=== PATIENT | female | born 1985 | race Caucasian/White ===

== ENCOUNTER 2019-08-13 15:36 | Emergency (ER) | payer MEDICAID | END 2019-08-13 17:45 | disposition left against medical advice (07) | LOC: ER 15:37 | DX: M54.9 Dorsalgia, unspecified (principal); Z53.21 Procedure and treatment not carried out due to patient leaving prior to being seen by health care provider ==

== ENCOUNTER 2019-08-14 09:01 | Emergency (ER) | payer MEDICAID ==
[~2019-08-14] VITALS: Ht 154.9 cm; Wt 62.3 kg
--- NOTE | 2019-08-14 09:54 | NUR ---
DELBERT BUNDY AT BEDSIDE.
[2019-08-14] MEDS ORDERED: cyclobenzaprine 10mg tablet PO ONE (10:15)
[2019-08-14] MEDS ORDERED: ketorolac tromethamine 15mg/ml inj. IM ONE (10:15)
[2019-08-14 10:31] VITALS: BP 149/73
== END 2019-08-14 10:33 | disposition home or self-care (01) ==
LOC: ER 09:02
DX: S39.012A Strain of muscle, fascia and tendon of lower back, initial encounter (principal); Z88.0 Allergy status to penicillin; Z88.1 Allergy status to other antibiotic agents; X50.1XXA Overexertion from prolonged static or awkward postures, initial encounter; Y93.01 Activity, walking, marching and hiking; Y92.89 Other specified places as the place of occurrence of the external cause; Y99.9 Unspecified external cause status
CPT/HCPCS: 96372; 99284; J1885

== ENCOUNTER 2019-10-01 09:44 | Emergency (ER) | payer MEDICAID ==
[~2019-10-01] VITALS: Ht 154.9 cm; Wt 63.2 kg
[2019-10-01 10:30] LABS: CLARITY,URINE CLOUDY (Clear); GLUCOSE, URINE NEGATIVE (Neg); KETONES,URINE 15 mg/dl (Neg); LEUKOCYTE ESTERASE ,URINE NEGATIVE (Neg); NITRITES, URINE NEGATIVE (Neg); OCCULT BLOOD,URINE NEGATIVE (Neg); PH,URINE >=9.0 (4.8-8.0); PROTEIN,URINE 100 mg/dl (Neg)
[2019-10-01 10:35] LABS: UA COLLECTION TYPE CLN CATCH MIDSTREAM
[2019-10-01] MEDS ORDERED: proCHLORperazine 10 MG/2 ml inj IV ONE (10:35)
[2019-10-01 10:38] LABS: COLOR,URINE DARK YELLOW (Yellow)
[2019-10-01 10:40] LABS: MUCUS STRANDS MANY /LPF (Neg); SQUAMOUS EPITHELIAL CELL,UR MANY /LPF (FEW)
[2019-10-01] MEDS ORDERED: ondansetron/PF 4mg/2ml inj IV ONE (10:45)
[2019-10-01] MEDS ORDERED: normal saline 1000ml 1,000 ML IV ONE (10:45)
[2019-10-01 10:46] LABS: BASOPHILS % (AUTO) 0.2 % (0-1); EOSINOPHILS % (AUTO) 0.4 % (0-6); HEMATOCRIT 46.1 % (35.0-45.0); HEMOGLOBIN 16.4 g/dl (12.0-16.0); LYMPHOCYTES # (AUTO) 1.9 X10'3 (1.1-4.8); LYMPHOCYTES % (AUTO) 19.3 % (21-51); MEAN CORPUSCULAR HEMOGLOBIN 30.8 PG (27.0-31.0); MEAN CORPUSCULAR HGB CONC 35.6 g/dL (33.0-36.5); MEAN CORPUSCULAR VOLUME 86.5 FL (78-98); MEAN PLATELET VOLUME 7.5 FL (7.4-10.4); MONOCYTES # (AUTO) 0.4 X10'3 (0-0.9); MONOCYTES % (AUTO) 3.9 % (2-12); NEUTROPHILS # (AUTO) 7.4 X10'3 (1.8-7.7); NEUTROPHILS % (AUTO) 76.2 % (42-75); PLATELET COUNT 277 X10'3 (140-440); RED BLOOD COUNT 5.33 X10'6 (4.20-5.60); RED CELL DISTRIBUTION WIDTH 13.3 % (11.5-14.5); WHITE BLOOD COUNT 9.7 X10'3 (4.5-11.0)
[2019-10-01 10:47] LABS: TRANSITIONAL EPI CELLS,URINE FEW /HPF; WBC,URINE 0-4 /HPF (0-4)
[2019-10-01 10:48] LABS: BACTERIA,URINE 2+ /HPF (Neg); RBC,URINE 0-2 /HPF (0-2)
[2019-10-01 11:08] LABS: ALANINE AMINOTRANSFERASE 23 U/L (12-78); ALBUMIN 4.4 G/DL (3.4-5.0); ALBUMIN/GLOBULIN RATIO 1.3 (1.1-1.5); ALKALINE PHOSPHATASE 84 IU/L (46-116); AMYLASE 59 U/L (25-115); ANION GAP 16 (8-16); ASPARTATE AMINO TRANSFERASE 14 U/L (10-37); BILIRUBIN,TOTAL 0.4 MG/DL (0.1-1.0); BLOOD UREA NITROGEN 13 MG/DL (7-18); CALCIUM 9.4 MG/DL (8.5-10.1); CHLORIDE 103 MMOL/L (99-107); CREATININE 0.81 MG/DL (0.40-0.90); GLUCOSE 121 MG/DL (70-104); LIPASE 67 U/L (73-393); POTASSIUM 3.4 MMOL/L (3.5-5.1); SODIUM 139 MMOL/L (135-145); TOTAL CARBON DIOXIDE 20.5 MMOL/L (24-32); TOTAL PROTEIN 7.9 G/DL (6.4-8.2); eGFR 82 ML/MIN
[2019-10-01 11:33] LABS: URINE HCG NEGATIVE (NEG)
[2019-10-01 11:46] LABS: URINE AMPHETAMINE SCREEN NEGATIVE (Neg); URINE BARBITUATE SCREEN NEGATIVE (Neg); URINE BENZODIAZEPINES SCREEN NEGATIVE (Neg); URINE CANNABINOID SCREEN POSITIVE (Neg); URINE COCAINE SCREEN NEGATIVE (Neg); URINE METHADONE SCREEN NEGATIVE (Neg); URINE OPIATE SCREEN NEGATIVE (Neg); URINE PHENCYCLIDINE SCREEN NEGATIVE (Neg)
[2019-10-01] MEDS ORDERED: ONDA8TAB6 PO (11:49)
[2019-10-01 12:00] VITALS: BP 120/68
== END 2019-10-01 12:01 | disposition home or self-care (01) ==
LOC: ER 09:44
DX: K29.70 Gastritis, unspecified, without bleeding (principal)
CPT/HCPCS: 36415; 80053; 80305; 81001; 81025; 82150; 83690; 85025; 96374; 96375; 99283; J0780; J2405; J7030

== ENCOUNTER 2019-10-27 13:59 | Emergency (ER) | payer MEDICAID ==
[~2019-10-27] VITALS: Ht 154.9 cm; Wt 61.8 kg
[~2019-10-27 13:59] MED LIST: ONDA8TAB6 PO
[2019-10-27 14:03] VITALS: BP 107/65
[2019-10-27 14:22] LABS: URINE HCG NEGATIVE (NEG)
[2019-10-27 14:29] LABS: CLARITY,URINE SLIGHTLY CLOUDY (Clear); COLOR,URINE STRAW (Yellow); GLUCOSE, URINE NEGATIVE (Neg); KETONES,URINE NEGATIVE (Neg); LEUKOCYTE ESTERASE ,URINE NEGATIVE (Neg); NITRITES, URINE NEGATIVE (Neg); OCCULT BLOOD,URINE NEGATIVE (Neg); PROTEIN,URINE NEGATIVE (Neg); UROBILINOGEN,URINE 0.2 E.U/dL (0.2-1.0)
[2019-10-27 14:30] LABS: BASOPHILS # (AUTO) 0.1 X10'3 (0-0.2); BASOPHILS % (AUTO) 0.8 % (0-1); EOSINOPHILS # (AUTO) 0.2 X10'3 (0-0.9); EOSINOPHILS % (AUTO) 2.1 % (0-6); HEMATOCRIT 43.9 % (35.0-45.0); HEMOGLOBIN 15.3 g/dl (12.0-16.0); LYMPHOCYTES # (AUTO) 2.3 X10'3 (1.1-4.8); LYMPHOCYTES % (AUTO) 28.6 % (21-51); MEAN CORPUSCULAR HEMOGLOBIN 30.5 PG (27.0-31.0); MEAN CORPUSCULAR HGB CONC 34.7 g/dL (33.0-36.5); MEAN CORPUSCULAR VOLUME 87.7 FL (78-98); MEAN PLATELET VOLUME 7.6 FL (7.4-10.4); MONOCYTES # (AUTO) 0.4 X10'3 (0-0.9); MONOCYTES % (AUTO) 5.1 % (2-12); NEUTROPHILS # (AUTO) 5.1 X10'3 (1.8-7.7); NEUTROPHILS % (AUTO) 63.4 % (42-75); PLATELET COUNT 228 X10'3 (140-440); RED BLOOD COUNT 5.01 X10'6 (4.20-5.60); RED CELL DISTRIBUTION WIDTH 13.4 % (11.5-14.5)
[2019-10-27 14:30] LABS: UA COLLECTION TYPE CLN CATCH MIDSTREAM
[2019-10-27 14:36] LABS: MUCUS STRANDS FEW /LPF (Neg); SQUAMOUS EPITHELIAL CELL,UR MODERATE /LPF (FEW)
[2019-10-27 14:37] LABS: BACTERIA,URINE 1+ /HPF (Neg); RBC,URINE 0-2 /HPF (0-2); TRANSITIONAL EPI CELLS,URINE FEW /HPF; WBC,URINE 0-4 /HPF (0-4)
[2019-10-27 14:45] LABS: ALANINE AMINOTRANSFERASE 30 U/L (12-78); ALBUMIN 3.7 G/DL (3.4-5.0); ALBUMIN/GLOBULIN RATIO 1.1 (1.1-1.5); ALKALINE PHOSPHATASE 93 IU/L (46-116); AMYLASE 44 U/L (25-115); ANION GAP 7 (8-16); ASPARTATE AMINO TRANSFERASE 17 U/L (10-37); BILIRUBIN,TOTAL 0.2 MG/DL (0.1-1.0); BLOOD UREA NITROGEN 7 MG/DL (7-18); BUN/CREATININE RATIO 12.5 (6.6-38.0); CALCIUM 8.5 MG/DL (8.5-10.1); CHLORIDE 104 MMOL/L (99-107); CREATININE 0.56 MG/DL (0.40-0.90); GLUCOSE 94 MG/DL (70-104); LIPASE 55 U/L (73-393); POTASSIUM 4.5 MMOL/L (3.5-5.1); SODIUM 138 MMOL/L (135-145); TOTAL CARBON DIOXIDE 27.1 MMOL/L (24-32); TOTAL PROTEIN 7.1 G/DL (6.4-8.2); eGFR > 90 ML/MIN
[2019-10-27] MEDS ORDERED: pantoprazole 40mg Tablet.DR PO STA (16:41)
[2019-10-27] MEDS ORDERED: acetaminophen 325mg tablet PO ONE (16:45)
[2019-10-27] MEDS ORDERED: famotidine 20mg tablet PO ONE (16:45)
[2019-10-27] MEDS ORDERED: famotidine 10mg tablet PO ONE (17:15)
== END 2019-10-27 17:02 | disposition home or self-care (01) ==
LOC: ER 13:59
DX: R10.32 Left lower quadrant pain (principal); R10.31 Right lower quadrant pain; R11.2 Nausea with vomiting, unspecified; Z88.0 Allergy status to penicillin; Z88.1 Allergy status to other antibiotic agents; Z88.8 Allergy status to other drugs, medicaments and biological substances; Z79.899 Other long term (current) drug therapy
CPT/HCPCS: 36415; 80053; 81001; 81025; 82150; 83690; 85025; 99283

== ENCOUNTER 2019-11-25 09:37 | Emergency (ER) | payer MEDICAID ==
[~2019-11-25] VITALS: Ht 160 cm; Wt 59.5 kg
[2019-11-25] MEDS ORDERED: normal saline 1000ML IV soln IVB ONE (10:00)
[2019-11-25 10:23] LABS: BASOPHILS % (AUTO) 0.3 % (0-1); EOSINOPHILS # (AUTO) 0.1 X10'3 (0-0.9); EOSINOPHILS % (AUTO) 1.9 % (0-6); HEMATOCRIT 47.5 % (35.0-45.0); HEMOGLOBIN 16.4 g/dl (12.0-16.0); LYMPHOCYTES # (AUTO) 1.9 X10'3 (1.1-4.8); LYMPHOCYTES % (AUTO) 24.8 % (21-51); MEAN CORPUSCULAR HEMOGLOBIN 29.9 PG (27.0-31.0); MEAN CORPUSCULAR HGB CONC 34.4 g/dL (33.0-36.5); MEAN CORPUSCULAR VOLUME 86.7 FL (78-98); MEAN PLATELET VOLUME 7.5 FL (7.4-10.4); MONOCYTES # (AUTO) 0.5 X10'3 (0-0.9); MONOCYTES % (AUTO) 6.1 % (2-12); NEUTROPHILS # (AUTO) 5.1 X10'3 (1.8-7.7); NEUTROPHILS % (AUTO) 66.9 % (42-75); PLATELET COUNT 251 X10'3 (140-440); RED BLOOD COUNT 5.48 X10'6 (4.20-5.60); RED CELL DISTRIBUTION WIDTH 13.8 % (11.5-14.5); WHITE BLOOD COUNT 7.6 X10'3 (4.5-11.0)
[2019-11-25 10:37] LABS: PARTIAL THROMBOPLASTIN TIME 27 SECONDS (22-32)
[2019-11-25 10:38] LABS: ALANINE AMINOTRANSFERASE 28 U/L (12-78); ALBUMIN/GLOBULIN RATIO 1.1 (1.1-1.5); ALKALINE PHOSPHATASE 89 IU/L (46-116); ANION GAP 8 (8-16); ASPARTATE AMINO TRANSFERASE 19 U/L (10-37); BILIRUBIN,TOTAL 0.2 MG/DL (0.1-1.0); BLOOD UREA NITROGEN 11 MG/DL (7-18); BUN/CREATININE RATIO 19.3 (6.6-38.0); CHLORIDE 104 MMOL/L (99-107); CREATININE 0.57 MG/DL (0.40-0.90); GLUCOSE 101 MG/DL (70-104); POTASSIUM 4.2 MMOL/L (3.5-5.1); SODIUM 137 MMOL/L (135-145); TOTAL CARBON DIOXIDE 25.1 MMOL/L (24-32); TOTAL PROTEIN 7.5 G/DL (6.4-8.2); eGFR > 90 ML/MIN
[2019-11-25] MEDS ORDERED: iohexol 300mg/ml 100ml inj. ONE (11:10)
--- NOTE | 2019-11-25 12:10 | NUR ---
OJANA RN ATTEMPTED IV X2 AND VERONIQUE SOSA ATTEMPTED IV X 2, PAPA SOSA TO ATTEMPT TO OBTAIN IV ACCESS.
[2019-11-25 12:34] LABS: CLARITY,URINE SLIGHTLY CLOUDY (Clear); COLOR,URINE YELLOW (Yellow); GLUCOSE, URINE NEGATIVE (Neg); KETONES,URINE NEGATIVE (Neg); LEUKOCYTE ESTERASE ,URINE NEGATIVE (Neg); NITRITES, URINE NEGATIVE (Neg); OCCULT BLOOD,URINE NEGATIVE (Neg); PROTEIN,URINE NEGATIVE (Neg); UROBILINOGEN,URINE 0.2 E.U/dL (0.2-1.0)
[2019-11-25 12:39] LABS: UA COLLECTION TYPE CLN CATCH MIDSTREAM
[2019-11-25 12:48] VITALS: BP 110/66
[2019-11-25 12:54] LABS: BACTERIA,URINE 1+ /HPF (Neg); MUCUS STRANDS MANY /LPF (Neg); SQUAMOUS EPITHELIAL CELL,UR MANY /LPF (FEW)
[2019-11-25 12:55] LABS: RBC,URINE 0-2 /HPF (0-2); WBC,URINE 0-4 /HPF (0-4)
[2019-11-25] MEDS ORDERED: POLY17PO10 PO (13:29)
== END 2019-11-25 13:41 | disposition home or self-care (01) ==
LOC: ER 09:38
DX: N83.201 Unspecified ovarian cyst, right side (principal); N83.202 Unspecified ovarian cyst, left side; K59.00 Constipation, unspecified; E86.0 Dehydration; Z88.0 Allergy status to penicillin; Z88.1 Allergy status to other antibiotic agents; Z79.899 Other long term (current) drug therapy
CPT/HCPCS: 36415; 74177; 80053; 81001; 85025; 85610; 85730; 96360; 99284; J7030; Q9967

== ENCOUNTER 2025-05-23 10:04 | Emergency (ER) | payer MEDICAID ==
[~2025-05-23] VITALS: Ht 154.9 cm; Wt 83.0 kg
[2025-05-23] MEDS ORDERED: HYDR-3965 PO (11:59)
[2025-05-23] MEDS ORDERED: DOXY-460 PO (11:59)
[2025-05-23] MEDS ORDERED: ANBESOL TP (11:59)
[2025-05-23] MEDS: DOXYCYCLINE 100MG CAPSULE PO STA (12:02)
--- NOTE | 2025-05-23 12:02 | Physician Documentation ---
HPI ~ General Chief Complaint: Tooth Problem Stated Complaint: MOUTH PAIN Time Seen by MD: 10:53 OK to notify your PCP?: Yes Primary Medical Doctor: NONE Source: patient Mode of Arrival: POV Exam Limitations: no limitations History of Present Illness HPI Comment 32-year-old female with dental pain from a broken tooth on the right upper molar. She states that she has an appointment in a few weeks to see a dentist to have all the upper teeth removed. She has not started any antibiotics. She has been using Orajel [id number] with little relief. She has been taking Tylenol and ibuprofen as well. Medication Reconciliation Allergies: Coded Allergies: Penicillins (Unverified Allergy, Unknown, 05/23/25) cephalothin (Unverified Allergy, Unknown, 05/23/25) vancomycin (Unverified Allergy, Unknown, 05/23/25) Scheduled Benzocaine* (Anbesol*), 1 APPLIC TP Q2H Doxycycline Monohydrate (Doxycycline Monohydrate), 1 CAP PO Q12H Ondansetron Hcl (Zofran), 1 TAB PO Q8H Scheduled PRN Hydrocodone Bit/Acetaminophen 5/325 MG ([place] 5/325 MG), 1 TAB PO TID PRN PRN for pain Past Medical History Past Medical History: No Pertinent History Past Surgical History: noncontributory Drug Use: none Lives with: Spouse Lives In: Home Review of Systems All Other Systems at this time: Reviewed and Negative Physical Exam Vital Signs: RN Vital Signs have been reviewed: Yes, Temperature: 97.0, Source: Oral, Heart Rate: 75, Respiratory Rate: 18, BP: 160/98, Pulse Oximetry: 98, Weight: 83.000 Pulse Oximetry Reflects: adequate oxygenation Physical Exam General: Alert, no distress. HEENT: No injection, moist mucous membranes. Neck: Full range of motion. No cervical lymphadenopathy. Respiratory: No respiratory distress, equal chest rise and fall. Chest: No accessory muscle use. Cardiovascular: Regular rate and rhythm. Gastrointestinal: Nondistended. Extremities: Normal range of motion, no deformity. Neurologic: Oriented x4. Psychiatric: Normal mood and affect. Skin: Normal color, warm and dry. Mouth/Throat: normal mouth inspection Palate: normal inspection Teeth/Gums: carious, fractured tooth (#3, #4), missing teeth, gingiva redness, gingiva swelling Face: normal inspection Progress Results/Orders Reviewed/noted all lab results: Yes Results/Orders Completed Orders - BECKI HERNANDEZ D[facility]NAM[facility]TRIDGE CRIMPER Doxycycline 100mg Capsule (Vibramycin 10 (05/23/25 11:54) Hydrocodone/Apap 5/325mg Tab ([place] 5/32 (05/23/25 11:55) Medications Received in ER Medications (Trade) Dose Ordered Sig/Oxana Route PRN Reason Start Time Stop Time Status Last Admin Dose Admin (VIBRAMYCIN 100mg capsule) 100 mg ONCE STAT PO 05/23/25 11:54 05/23/25 11:59 DC 05/23/25 12:02 100 MG ([place] 5/325mg tablet) 1 tab ONCE ONCE PO 05/23/25 11:55 05/23/25 11:59 DC 05/23/25 12:03 1 TAB Vital Signs 05/23/25 05/23/25 05/23/25 10:19 12:03 12:10 Temp 97.0 97.8 Pulse 75 60 Resp 18 18 16 B/P (MAP) 160/98 164/91 Pulse Ox 98 95 Medical Decision Making Additional info obtained from: old records Findings 32-year-old female with fractured to teeth to the right upper molars. She states that she has an appointment with her dentist coming up to have all the upper teeth removed. There is some gingival redness on exam as well as some swelling. I started her on doxycycline because she is allergic to penicillins, cephalosporins and vancomycin so this limits the antibiotic choices. I gave her the 1st dose while here in the department of as well as some [place] for pain relief. I sent prescription to her pharmacy for [place] as well as benzocaine which he can use directly at the site. Her pharmacy is out of the medication so E scribed to a different pharmacy. The pharmacist notified me that she is taking Suboxone the lowest dose which the patient did not admit while she was here. I did give a dose of [place] while here. The patient states that she did not take her dose of Suboxone for today. Due to being on Suboxone treatment, I will not be giving her a further prescription for [place] but I will still send the benzocaine over to [facility]. As she is receiving outpatient opiate use disorder therapy, I can not continue the [place] prescription as her taking this and her Suboxone has a high risk of over- sedation and I have no way to monitor this patient was as she has left the department. She was able to warehouse order picker the doxycycline from her pharmacy though. Differential Dx:Considerations: Include: Facial Cellulitis, Periapical abscess, Peridontal abscess, Tooth avulsion, Tooth Fracture Departure Disposition: 01 HOME / SELF CARE / HOMELESS Impression: Primary Impression: Dental abscess Discharge Instructions: Dental Abscess Additional Instructions: Should follow up with her dentist as scheduled. Take all antibiotics as prescribed. Use Tylenol and ibuprofen for pain relief. Referrals: NO PRIMARY CARE PROVIDER (PCP) Prescriptions Benzocaine* (Anbesol*) 12 Ml Bottle 1 APPLIC TP Q2H for 7 Days, #1 EACH Prov: BECKI HERNANDEZ 05/23/25 Doxycycline Monohydrate (Doxycycline Monohydrate) 100 Mg Capsule 1 CAP PO Q12H for 10 Days, #20 CAP Prov: BECKI HERNANDEZ 05/23/25 Education Educated: Patient Educated regarding: diagnosis, treatment, prognosis, need for follow up Additional Comment Medical Screen Exam This patient recieved a medical screening examination. After reviewing the individual's medical complaints with presenting symptoms and performing an appropriate physical examination, it was determined that no immediate life- threatening emergency medical condition is present. This individual is also not a women having contractions. Signature Scribe Signature: . Attestation: Scribed for Becki Hernandez by Becki Cisneros NP . 05/23/25 11:58 Parts of this note were created using [employer] voice recognition software program. While efforts were made to correct any mistakes made by this voice recognition software program, nonsensical phrases may remain in this note. In addition, there may be errors and syntax, grammar, content and spelling. BECKI HERNANDEZ May 23, 2025 12:02
[2025-05-23] MEDS: HYDROcodone/acetaminophen 5mg/325mg tablet PO ONE (12:03)
[2025-05-23 12:10] VITALS: BP 164/91; PULSE 60; RESP 16; TEMP 97.8; O2SAT 95
== END 2025-05-23 12:11 | disposition home or self-care (01) ==
LOC: ER 10:04
DX: K04.7 Periapical abscess without sinus (principal); Z88.0 Allergy status to penicillin; Z88.1 Allergy status to other antibiotic agents; Z88.8 Allergy status to other drugs, medicaments and biological substances
CPT/HCPCS: 99283

== ENCOUNTER 2025-05-24 07:40 | Emergency (ER) | payer MEDICAID ==
[~2025-05-24] VITALS: Ht 154.9 cm; Wt 82.0 kg
[~2025-05-24 07:40] MED LIST changes: +ANBESOL TP; +DOXY-460 PO
[2025-05-24 07:46] VITALS: TEMP 97.1
--- NOTE | 2025-05-24 08:31 | Physician Documentation ---
History of Present Illness ~ General Chief Complaint: Facial Swelling Stated Complaint: FACIAL SWELLING Time Seen by MD: 08:12 Primary Medical Doctor: NONE History of Present Illness Initial Comments 40-year-old female presenting with right-sided facial swelling that has been gradually worsening over the last 24 hours. Patient was seen here yesterday for a dental infection and abscess and discharged with doxycycline. Reports that she took the doxycycline as prescribed and has taken three doses thus far but her symptoms have gradually worsened. Reports that the swelling is spreading from around her mouth all the way up towards the back of her jaw and up towards her eye. She feels warm and states that the pain is very bad but denies any fever, chills or any other associated symptoms. Reports that she has a history of polysubstance abuse but has been sober for six years. She is following with a dentist as she has bad teeth and is set to have a lot of dental work done. Medication Reconciliation Allergies: Coded Allergies: Penicillins (Unverified Allergy, Unknown, 05/24/25) cephalothin (Unverified Allergy, Unknown, 05/24/25) vancomycin (Unverified Allergy, Unknown, 05/24/25) Scheduled Benzocaine* (Anbesol*), 1 APPLIC TP Q2H Doxycycline Monohydrate (Doxycycline Monohydrate), 1 CAP PO Q12H Ondansetron Hcl (Zofran), 1 TAB PO Q8H Discontinued Medications Hydrocodone Bit/Acetaminophen 5/325 MG ([place] 5/325 MG), 1 TAB PO TID PRN PRN for pain Past Medical History Past Medical History: No Pertinent History Past Surgical History: noncontributory Drug Use: none Lives with: Spouse Lives In: Home Review of Systems All Other Systems at this time: Reviewed and Negative Physical Exam Physical Exam Vital Signs: Temperature: 97.1, Source: Temporal, Heart Rate: 92, Respiratory Rate: 16, BP: 136/91, Pulse Oximetry: 98, Weight: 82.050 Oxygen Flow Rate: 0 General Appearance I have reviewed the triage vitals. CONST: Well developed and well nourished. In no acute distress HENT: Head Atraumatic. Significant edema over the right side of the face ranging from the periorbital area down to the mandible. There are two dental caries over the right upper posterior molars. Right upper mouth is edentulous EYES: Pupils are equal, round and reactive to light. Normal conjunctiva NECK: Normal range of motion. Supple. CARDIO: Normal rate and regular rhythm. No murmurs, rubs, or gallops. S1, S2. PULM/CHEST: No respiratory distress. Lungs clear to auscultation. No wheeze ABD: Soft and nontender. Nondistended. Bowel sounds normal. No guarding. : Exam deferred MSK: No edema. No deformity. NEURO: Alert and oriented to person, place and time. Moving all extremities SKIN: Warm and dry. PSYCH: Normal mood and affect. Good eye contact. Progress Results/Orders Results/Orders Orders - KANNAN GRACIA MD Electrocardiogram (05/24/25 08:24) Culture Blood (05/24/25 08:24) Ct Facial Bones/Soft Tissue (05/24/25 10:44) Completed Orders - KANNAN GRACIA MD Ketorolac Trometh 30mg/Ml Vial (Toradol (05/24/25 08:25) Normal Saline 1000ml (0.9% Sodium Chlori (05/24/25 08:25) Clindamycin 600mg/D5w 50ml (Cleocin 600m (05/24/25 08:25) Dexamethasone Inj (Decadron 10mg/Ml Inj) (05/24/25 08:22) Electrocardiogram (05/24/25 08:24) Cbc/Diff (05/24/25 08:24) Hs Troponin I W Calculations (05/24/25 08:24) CMP (05/24/25 08:24) Lacticsepsis (05/24/25 08:24) Ct Facial Bones/Soft Tissue (05/24/25 10:44) Iohexol 300mg/Ml 100ml Inj. (Omnipaque-3 (05/24/25 08:40) Morphine 4mg/Ml Inj. (Morphine Inj.) (05/24/25 12:50) Ondansetron Inj. (Zofran 4mg/2ml Vial) (05/24/25 12:50) Morphine 4mg/Ml Inj. (Morphine Inj.) (05/24/25 16:40) Medications Received in ER Medications (Trade) Dose Ordered Sig/Oxana Route PRN Reason Start Time Stop Time Status Last Admin Dose Admin (morphine inj.) 4 mg ONCE ONCE IV 05/24/25 16:40 05/24/25 16:41 DC 05/24/25 16:50 4 MG Vital Signs 05/24/25 05/24/25 05/24/25 05/24/25 07:46 08:18 09:06 09:36 Temp 97.1 Pulse 85 92 67 Resp 18 16 16 16 B/P (MAP) 149/89 136/91 (106) 136/90 (105) Pulse Ox 98 98 96 O2 Flow Rate 0 0 05/24/25 05/24/25 05/24/25 05/24/25 09:52 10:06 10:52 12:06 Pulse 65 69 70 Resp 18 16 16 16 B/P (MAP) 133/83 (100) 120/77 (91) 118/80 (93) Pulse Ox 97 98 95 O2 Flow Rate 0 0 0 05/24/25 05/24/25 05/24/25 05/24/25 13:02 13:09 14:02 14:57 Pulse 70 75 Resp 16 18 16 16 B/P (MAP) 140/93 (109) 119/82 (94) Pulse Ox 96 96 O2 Flow Rate 0 05/24/25 05/24/25 05/24/25 05/24/25 16:50 16:52 17:36 17:47 Pulse 71 69 69 Resp 16 16 14 16 B/P (MAP) 133/85 (101) 114/90 114/90 (98) Pulse Ox 95 96 96 O2 Flow Rate 0 0 05/24/25 17:47 Resp 16 Laboratory Tests Test 05/24/25 08:59 05/24/25 09:00 Lactic Acid Level 0.9 White Blood Count 12.4 H Red Blood Count 5.07 Hemoglobin 15.7 Hematocrit 44.9 Mean Corpuscular Volume 88.6 Mean Corpuscular Hemoglobin 31.1 H Mean Corpuscular Hemoglobin Concent 35.1 Red Cell Distribution Width 14.0 Platelet Count 333 Mean Platelet Volume 7.7 Neutrophils (%) (Auto) 82.5 H Lymphocytes (%) (Auto) 12.1 L Monocytes (%) (Auto) 4.6 Eosinophils (%) (Auto) 0.6 Basophils (%) (Auto) 0.2 Neutrophils # (Auto) 10.2 H Lymphocytes # (Auto) 1.5 Monocytes # (Auto) 0.6 Eosinophils # (Auto) 0.1 Basophils # (Auto) 0.0 CBC Comment Sodium Level 138 Potassium Level 3.6 Chloride Level 101 Carbon Dioxide Level 26.3 Anion Gap 11 Blood Urea Nitrogen 11 Creatinine 0.48 Estimated GFR/1.73 m2 > 90 BUN/Creatinine Ratio 22.9 H Glucose Level 93 Calcium Level 9.5 Total Bilirubin 0.6 Aspartate Amino Transf (AST/SGOT) 33 Alanine Aminotransferase (ALT/SGPT) 46 Alkaline Phosphatase 136 H Troponin I High Sensitivity 4 Total Protein 9.1 H Albumin 4.6 Globulin 4.5 H Albumin/Globulin Ratio 1.0 L Chemistry Comments Microbiology Date/Time Source Procedure Growth Status 05/24/25 09:00 Blood Arm Right Blood Culture - Preliminary NEGATIVE (LESS THAN 24 HOURS) Resulted EKG/XRAY/CT/US/VASC/MRI EKG : Additional Comment EKG as interpreted by ED MD indicating normal sinus rhythm with a rate of 76 beats per minute, normal axis, no ischemia Medical Decision Making Differential Diagnosis 40 y/o F presenting with a right maxillary abscess secondary to a dental infection. WBC count is elevated to 12.4. CT of the facial bones/soft tissue confirms abscess formation with surrounding cellulitis. Patient started on 600 mg IV clindaycin and also given 30 mg IV toradol for pain. This was continued with 2 doses of 4 mg IV morphine for further pain control. Patient needs oral- maxillofacial or ENT for drainage of abscess. I discussed the case with [facility] in [place], [place]. Patient will be transferred for specialty services and higher level of care. Departure Disposition: 02 SHORT TERM HOSPITAL Impression: Primary Impression: Abscess of maxilla Additional Impression: Facial cellulitis Condition: Guarded Referrals: NO PRIMARY CARE PROVIDER (PCP) Signature Scribe Signature: 1 Attestation: 1 KANNAN GRACIA MD May 24, 2025 08:30
--- NOTE | 2025-05-24 08:33 | ELECTROCARDIOGRAPH REPORT ---
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 Peng Daly Measurements Intervals [place] Rate: 76 P: 31 WI: 153 QRS: 15 QRSD: 102 T: 0 QT: 383 QTc: 431 Interpretive Statements Sinus rhythm Borderline T abnormalities, anterior leads Electronically Signed On 05-24-2025 19:42:[address] Peng Daly Please click the below link to view image of tracing.
[2025-05-24] MEDS: normal saline 1000ml 1,000 ML IV ONE (08:34)
[2025-05-24] MEDS ORDERED: iohexol 300mg/ml 100ml inj. ONE (08:40)
[2025-05-24] MEDS: ketorolac trometh 30MG/ML vial 30 MG/ML VIAL IV ONE (09:06)
[2025-05-24] MEDS: dexamethasone sod phosphate 10mg/ml inj IV STA (09:06)
[2025-05-24 09:33] LABS: MEAN PLATELET VOLUME 7.7 FL (7.4-10.4); RED CELL DISTRIBUTION WIDTH 14.0 % (11.5-14.5)
[2025-05-24 09:57] LABS: CREATININE 0.48 MG/DL (0.40-0.90); TOTAL CARBON DIOXIDE 26.3 MMOL/L (24-32); eCRCL 120 ML/MIN; eGFR > 90 ML/MIN
--- NOTE | 2025-05-24 11:39 | RADIOLOGY REPORT ---
CT CT FACIAL BONES/SOFT TISSUE W/ IV CONTRAST Indication: right facial swelling EXAM DATE: 05/24/2025 10:36 AM COMPARISON: None TECHNIQUE: CT of the head without intravenous contrast. RADIATION DOSE: CTDIvol: 55 mGy, DLP: 933 mGy*cm FINDINGS: There is right facial region soft tissue edema, stranding which extends inferiorly to the right perim andibular tissues. Right Chaz maxillary rim enhancing collection measuring 1.3 x 1.0 cm consistent wi th abscess. This is likely odontogenic in origin arising from periapical lucencies involving the righ t maxillary medial/ lateral incisor teeth. The orbits and retrobulbar spaces are unremarkable. Right ethmoid and right maxillary sinus disease. Right cervical jugulodigastric lymph nodes measuring up to 1.6 cm. IMPRESSION: Right chaz maxillary rim enhancing collection consistent with abscess measuring 1.3 x 1.0 cm which i s likely odontogenic in origin arising from the right maxillary medial/ lateral incisor teeth. Right facial region soft tissue edema and stranding consistent with concomitant cellulitic changes. Right ethmoid, right maxillary sinus disease.
[2025-05-24] MEDS: morphine 4 MG/ML inj SYRINge IV ONE ×2 (13:02→16:50)
[2025-05-24] MEDS: ondansetron/PF 4mg/2ml inj IV ONE (13:02)
[2025-05-24 17:47] VITALS: BP 114/90; PULSE 69; RESP 16; O2SAT 96
== END 2025-05-24 18:57 ==
LOC: ER 07:41
DX: M27.2 Inflammatory conditions of jaws (principal); L03.211 Cellulitis of face; F19.11 Other psychoactive substance abuse, in remission; Z88.0 Allergy status to penicillin; Z88.1 Allergy status to other antibiotic agents; Z79.899 Other long term (current) drug therapy
CPT/HCPCS: 36415; 70487; 80053; 83605; 84484; 85025; 87040; 93005; 96361; 96365; 96375; 96376; 99285; J1100; J1885; J2270; J2405; J3490; J7030; Q9967